=== PATIENT | female | born 1940 | race American Indian/Alaskan Native ===

== ENCOUNTER 2017-02-01 09:29 | Emergency (ER) | payer MEDICARE ==
[2017-02-01 10:00] LABS: Basophils % (Auto) 0.3 % (0.0-1.8); Eosinophils % (Auto) 0.2 % (0.0-4.3); Hematocrit 43.6 % (30.3-42.9); Hemoglobin 14.7 gm/dl (10.1-14.3); Mean Corpuscular HGB Conc 34 % (30-34); Mean Corpuscular Hemoglobin 30 pg (28-32); Mean Corpuscular Volume 88 fl (79-97); Platelet Count 259 K/mm3 (140-440); Red Blood Count 4.98 M/mm3 (3.65-5.03); Red Cell Distribution Width 12.9 % (13.2-15.2); White Blood Count 10.9 K/mm3 (4.5-11.0)
[2017-02-01 10:23] LABS: Alanine Aminotransferase 14 units/L (7-56); Albumin 3.7 g/dL (3.9-5); Albumin/Globulin Ratio 1.1 %; Alkaline Phosphatase 98 units/L (35-129); Anion Gap 20 mmol/L; BUN/Creatinine Ratio 27.77; Blood Urea Nitrogen 25 mg/dL (7-17); Calcium 9.4 mg/dL (8.4-10.2); Carbon Dioxide 24 mmol/L (22-30); Chloride 91.6 mmol/L (98-107); Glucose 387 mg/dL (65-100); Lipase 106 units/L (13-60); Potassium 4.7 mmol/L (3.6-5.0); Sodium 131 mmol/L (137-145); Total Protein 7.1 g/dL (6.3-8.2)
[2017-02-01 11:02] LABS: Bacteria,Urine 1+ /HPF (Negative); Bilirubin,Urine NEG (Negative); Blood,Urine NEG (Negative); Ketones,Urine TR mg/dL (Negative); Leukocyte Esterase,Urine NEG (Negative); Mucus,Urine FEW /HPF; Nitrite,Urine NEG (Negative); Protein,Urine <15 mg/dL mg/dL (Negative); Urobilinogen,Urine < 2.0 mg/dL (<2.0)
--- NOTE | 2017-02-01 14:36 | Cat Scan Report ---
CT OF THE ABDOMEN AND PELVIS WITHOUT CONTRAST HISTORY: Pain. TECHNIQUE: Helical CT without contrast. Sagittal and coronal reformatted images. FINDINGS: Within the limits of a noncontrast exam, the abdominal and pelvic viscera are within normal limits. The liver, biliary system, pancreas, spleen, kidneys, adrenal glands and bladder are unremarkable. The bowel loops are normal caliber and wall thickness. Normal appendix. The aorta is normal caliber. No ascites, bulky adenopathy or inflammatory changes. The lung bases are clear. Normal heart size. No suspicious bony lesion. IMPRESSION: Unremarkable noncontrast CT of the abdomen and pelvis.
[2017-02-01] MEDS ORDERED: NACL 0.9% 1000 ML 1,000 ML IV ONE (15:28)
[2017-02-01] MEDS ORDERED: NACL ONE (16:08)
--- NOTE | 2017-02-01 16:40 | Cat Scan Report ---
CT ABDOMEN AND PELVIS WITH CONTRAST INDICATION: Pain. COMPARISON: Noncontrast exam from earlier today. FINDINGS: Abdomen and pelvis CT performed following intravenous administration of 100 cc of Omnipaque 300. LUNG BASES: Top normal heart size. Few coronary calcifications. No effusions. Nonspecific distal esophageal wall prominence/thickening, not excluded for gastroesophageal reflux and/or hiatal hernia, amongst others. ABDOMEN: Borderline fatty hepatic infiltration. Otherwise unremarkable liver, spleen, gallbladder, pancreas, adrenals, nonaneurysmal abdominal aorta with few atherosclerotic calcifications, IVC and kidneys. No ascites or size significant adenopathy. Nonopacified GI tract evaluation limited, though grossly nonobstructive. However, diffuse mid to distal gastric wall thickening noted extending up to the pylorus/duodenum. Mild to moderate stool throughout colon/possible constipation. PELVIS: Urinary bladder, uterus and adnexa/ovaries within normal limits. Mild rectosigmoid stool. No free fluid or significant adenopathy. Prominent fat within bilateral inguinal canal regions measuring approximately 3 cm diameter, left slightly larger than right. Demineralized bones. Moderate to severe L5-S1 disc narrowing with vacuum phenomenon. Mild L4-L5 bilateral facet arthropathy. Mild lower thoracic spine degenerative spurring as well. CONCLUSION: 1. Abnormal CT appearance with mid to distal gastric wall thickening possibly inflammatory/peptic ulcer disease, amongst others. GI correlation may be obtained, as appropriate. 2. Various other incidental findings, as above. Thank you for the opportunity to participate in this patient's care.
[2017-02-01] MEDS ORDERED: MORPHINE IV ONE ×2 (16:53→16:55)
[2017-02-01] MEDS ORDERED: PEPCID IV ONE (16:53)
--- NOTE | 2017-02-01 18:18 | Emergency Department Report ---
ED Abdominal Pain HPI - General Chief Complaint: Abdominal Pain Stated Complaint: SHARP ABD PAIN Time Seen by Provider: 02/01/17 14:05 Source: patient Mode of arrival: Ambulatory Limitations: No Limitations - History of Present Illness MD Complaint: abdominal pain -: Gradual Location: epigastric Radiation: none Migration to: no migration Severity: mild Severity scale (0 -10): 4 Quality: aching, burning Consistency: intermittent Improves With: nothing Worsens With: nothing Context: other (reports allergic to aspirin. Took an alleve by mistake days ago and since has had epigastric pain) Associated Symptoms: nausea, vomiting, constipation. denies: diarrhea, fever, chills, dysuria, hematemesis, hematochezia, melena, hematuria, syncope - Related Data Home Medications Medication Instructions Recorded Confirmed Last Taken Glimepiride [Amaryl] 4 mg PO QAM 06/10/15 02/01/17 01/31/17 Hydrochlorothiazide [Hctz] 12.5 mg PO QDAY 06/10/15 02/01/17 01/31/17 Lovastatin Tab [Mevacor] 10 mg PO QPM 06/10/15 02/01/17 01/31/17 RX: Ramipril 5 mg PO QHS 06/10/15 02/01/17 01/31/17 amLODIPine [Norvasc] 10 mg PO QHS 06/10/15 02/01/17 01/31/17 metFORMIN [Glucophage] 850 mg PO QDAY 06/10/15 02/01/17 01/31/17 Previous Rx's Medication Instructions Recorded Last Taken Type Famotidine [Pepcid] 20 mg PO BID #28 tablet 02/01/17 Unknown Rx Allergies Allergy/AdvReac Type Severity Reaction Status Date / Time aspirin Allergy UPSET Verified 02/01/17 09:43 STOMACH ED Review of Systems ROS: Stated complaint: SHARP ABD PAIN Other details as noted in HPI Other: GENERAL: No weight change, fatigue, weakness, fever, chills, or night sweats SKIN: No changes in skin or hair, no itching, no rashes, no jaundice HEAD: No trauma, headache, or visual changes EYES: No blurriness, tearing, itching, acute visual loss, conjunctival discoloration, or scleral icterus EARS: No hearing loss, tinnitus, vertigo, or earache NOSE: No rhinorrhea, stuffiness, sneezing, itching, or epistaxis MOUTH: No bleeding gums, hoarseness, sore throat, or swelling CARDIAC: No new murmur, chest pain, palpitations, dyspnea on exertion, orthopnea , PND, or edema RESPIRATORY: No shortness of breath, wheeze, cough, sputum production, hemoptysis, pneumonia, asthma, bronchitis, or emphysema GI: nausea, vomiting, constipation, abdominal pain URINARY: No frequency, urgency, polyuria, dysuria, hematuria, or incontinence MUSCULOSKELETAL: No muscle weakness, joint stiffness, decrease in range of motion, redness, swelling, tenderness NEUROLOGIC: No loss of sensation, numbness, tingling, tremors, weakness, paralysis, seizures HEMATOLOGIC: No anemia, easy bruising, bleeding, petechiae, or purpura ENDOCRINE: No hot or cold intolerance, sweating, polyuria, polydipsia or, polyphagia no thyroid problems PSYCHIATRIC: No change in mood, no anxiety, no depression ED Past Medical Hx - Past Medical History Previous Medical History?: Yes Hx Hypertension: Yes (FOR 10+ YRS) Hx Diabetes: Yes (FOR 25 YRS) - Surgical History Past Surgical History?: No - Social History Smoking Status: Never Smoker Substance Use Type: None - Medications Home Medications: Home Medications Medication Instructions Recorded Confirmed Last Taken Type Glimepiride [Amaryl] 4 mg PO QAM 06/10/15 02/01/17 01/31/17 History Hydrochlorothiazide [Hctz] 12.5 mg PO QDAY 06/10/15 02/01/17 01/31/17 History Lovastatin Tab [Mevacor] 10 mg PO QPM 06/10/15 02/01/17 01/31/17 History RX: Ramipril 5 mg PO QHS 06/10/15 02/01/17 01/31/17 History amLODIPine [Norvasc] 10 mg PO QHS 06/10/15 02/01/17 01/31/17 History metFORMIN [Glucophage] 850 mg PO QDAY 06/10/15 02/01/17 01/31/17 History Famotidine [Pepcid] 20 mg PO BID #28 tablet 02/01/17 Unknown Rx ED Physical Exam - General Limitations: No Limitations - Other Other exam information: GENERAL: Patient in no acute distress HEAD: Normocephalic, atraumatic EYES: PERRLA, EOM intact, no scleral icterus, no conjunctival hemorrhage, visual mcdonough and acuity wnl, NOSE: No tenderness, discharge, sinus tenderness MOUTH: No erythema, bleeding, exudate HEART: Regular rate and rhythm, no murmur, S1-S2 are auscultated, pulses are symmetric LUNGS: No wheezing, rales, rhonchi, bilateral breath sounds ABDOMEN: soft, mild epigastric tenderness MUSCULOSKELETAL: Normal joint range of motion, no redness, no swelling, no tenderness NEUROLOGIC: GCS 15, Alert and Oriented x3, Cranial nerves intact, normal sensation, normal strength, no cerebellar deficit PSYCHIATRIC: No homicidal or suicidal ideation, no anxiety, no depression, no hallucinations SKIN: Skin is warm and dry, no wounds, no rashes ED Course Vital Signs 02/01/17 02/01/17 02/01/17 09:44 14:38 14:41 Temperature 98.0 F Pulse Rate 78 79 81 Respiratory 18 12 14 Rate Blood Pressure 116/63 140/67 Blood Pressure [Left] O2 Sat by Pulse 100 99 98 Oximetry 02/01/17 02/01/17 02/01/17 14:50 14:51 15:01 Temperature 97.7 F Pulse Rate 65 68 67 Respiratory 18 14 17 Rate Blood Pressure 134/65 139/71 Blood Pressure 134/65 [Left] O2 Sat by Pulse 98 98 96 Oximetry 02/01/17 02/01/17 02/01/17 15:11 15:21 15:31 Temperature Pulse Rate 66 84 70 Respiratory 18 13 19 Rate Blood Pressure 139/71 139/71 105/56 Blood Pressure [Left] O2 Sat by Pulse 97 96 97 Oximetry 02/01/17 02/01/17 02/01/17 15:40 15:51 16:00 Temperature Pulse Rate 73 82 82 Respiratory 25 H 16 18 Rate Blood Pressure 139/71 105/56 105/56 Blood Pressure [Left] O2 Sat by Pulse 96 97 Oximetry 02/01/17 02/01/17 16:21 16:30 Temperature Pulse Rate 67 79 Respiratory 14 18 Rate Blood Pressure 105/56 113/76 Blood Pressure [Left] O2 Sat by Pulse 97 99 Oximetry ED Medical Decision Making - Lab Data Result diagrams: 02/01/17 09:50 02/01/17 09:50 - Radiology Data Radiology results: report reviewed - Medical Decision Making Patient comfortable. Updated with results. Plan discharge with outpatient follow-up. Patient agrees with plan and will return if symptoms worsen. Critical care attestation.: If time is entered above; I have spent that time in minutes in the direct care of this critically ill patient, excluding procedure time. ED Disposition Clinical Impression: Lactic acid acidosis Abdominal pain Qualifiers: Abdominal location: epigastric Qualified Code(s): R10.13 - Epigastric pain Disposition: TO HOME OR SELFCARE Is pt being admited?: No Condition: Stable Instructions: Abdominal Pain (ED), Gastritis (ED) Prescriptions: Famotidine [Pepcid] 20 mg PO BID #28 tablet Referrals: PRIMARY CARE, [Primary Care Provider] - 2-3 Days [facility] [Provider Group] - 2-3 Days Time of Disposition: 18:45
[2017-02-01 18:59] VITALS: BP 96/61
== END 2017-02-01 19:39 | disposition home or self-care (01) ==
LOC: ED 09:29
DX: E87.2 Acidosis (principal); R10.13 Epigastric pain; E11.9 Type 2 diabetes mellitus without complications; I10 Essential (primary) hypertension; Z79.82 Long term (current) use of aspirin; Z88.6 Allergy status to analgesic agent
CPT/HCPCS: 36415; 74176; 74177; 80053; 81001; 82140; 83690; 84484; 85025; 87040; 96361; 96374; 99284; J7030; Q9967